=== PATIENT | male | born 1985 | race Caucasian/White ===

== ENCOUNTER 2020-06-24 13:17 | Emergency (ER) | payer OTHER, SELFPAY ==
[2020-06-25 13:03] LABS: SARS-CoV-2 MS2 Positive; SARS-CoV-2 N Gene Negative; SARS-CoV-2 S Gene Negative; SARS-CoV-2 by NAA Not Detected (NotDetected); SARS-CoV-2 orf1ab Negative
== END 2020-06-24 13:41 | disposition home or self-care (01) ==
LOC: ERS 13:17
DX: R09.81 Nasal congestion (principal); R52 Pain, unspecified; Z20.828 Contact with and (suspected) exposure to other viral communicable diseases
CPT/HCPCS: 87635; 99283; U0003

== ENCOUNTER 2020-11-20 09:08 | Emergency (ER) | payer OTHER, SELFPAY ==
[2020-11-20 16:55] LABS: SARS-CoV-2 PCR by NAA Not Detected (NotDetected)
== END 2020-11-20 09:35 | disposition home or self-care (01) ==
LOC: ERS 09:08
DX: Z20.822 Contact with and (suspected) exposure to COVID-19 (principal); F17.200 Nicotine dependence, unspecified, uncomplicated
CPT/HCPCS: 87635; 99283; U0003; U0005

== ENCOUNTER 2022-02-21 16:17 | Emergency (ER) | payer SELFPAY ==
[2022-02-21] MEDS ORDERED: Boostrix 0.5 ML (Tdap) VIAL ONE (17:07)
[2022-02-21] MEDS ORDERED: Lidocaine 1% PF 5 ML VIAL ONE (17:07)
== END 2022-02-21 18:08 | disposition home or self-care (01) ==
LOC: ERS 16:17
DX: S61.304A Unspecified open wound of right ring finger with damage to nail, initial encounter (principal); W31.89XA Contact with other specified machinery, initial encounter
CPT/HCPCS: 12001; 90471; 90715